=== PATIENT | male | born 1975 | race Two or more races ===

== ENCOUNTER 2017-03-27 19:45 | Emergency (ER) | payer MEDICAID ==
[~2017-03-27] VITALS: Ht 182.9 cm; Wt 113.4 kg
[~2017-03-27 19:45] MED LIST: BACTRIM DS TAB1 EAC1 ORAL; CYCLOBENZAPRINE10 MG ORAL; IBUPROFEN200 M2 ORAL; IBUPROFEN800 MG ORAL; LEVAQUIN500 MG ORAL; LORTAB 5-325 M1 EACH PO; NORCO 5-325 TA1 EACH ORAL
[2017-03-27] MEDS ORDERED: NKM (19:53)
[2017-03-27] MEDS ORDERED: Morphine Sulfate 4mg/ml Inj IVP ONE ×2 (20:15→22:30)
[2017-03-27 20:28] LABS: BASOPHILS % (AUTO) 1.5 % (0.0-2.0); EOSINOPHILS % (AUTO) 2.7 % (0.0-3.0); HEMATOCRIT 52.2 % (42.0-52.0); HEMOGLOBIN 17.2 G/DL (14.2-18.0); LYMPHOCYTES % (AUTO) 32.5 % (20.0-45.0); MEAN CORPUSCULAR VOLUME 90 FL (80-99); MONOCYTES % (AUTO) 8.1 % (1.0-10.0); NEUTROPHILS % (AUTO) 55.2 % (45.0-75.0); PLATELET COUNT 330 K/UL (150-450); RED BLOOD COUNT 5.78 M/UL (4.70-6.10); RED CELL DISTRIBUTION WIDTH 11.4 % (11.6-14.8); WHITE BLOOD COUNT 10.5 K/UL (4.8-10.8)
[2017-03-27 20:34] LABS: APPEARANCE,URINE CLEAR; BILIRUBIN, URINE NEGATIVE (NEGATIVE); COLOR,URINE PALE YELLOW; GLUCOSE, URINE (UA) NEGATIVE (NEGATIVE); KETONES,URINE NEGATIVE (NEGATIVE); LEUKOCYTE ESTERASE ,URINE NEGATIVE (NEGATIVE); NITRITE,URINE NEGATIVE (NEGATIVE); PH,URINE 5 (4.5-8.0); PROTEIN,URINE 1+ (NEGATIVE); UROBILINOGEN,URINE NORMAL MG/DL (0.0-1.0)
[2017-03-27 20:37] VITALS: BP 129/95
[2017-03-27 20:39] LABS: INR 0.9 (0.9-1.1)
[2017-03-27 20:52] LABS: ALANINE AMINOTRANSFERASE 44 U/L (12-78); ALBUMIN 4.2 G/DL (3.4-5.0); ALBUMIN/GLOBULIN RATIO 1.1 (1.0-2.7); ALKALINE PHOSPHATASE 155 U/L (46-116); ANION GAP 11 mmol/L (5-15); ASPARTATE AMINO TRANSFERASE 22 U/L (15-37); BILIRUBIN,TOTAL 0.4 MG/DL (0.2-1.0); BLOOD UREA NITROGEN 17 mg/dL (7-18); CALCIUM 9.4 MG/DL (8.5-10.1); CARBON DIOXIDE 25 MMOL/L (21-32); CHLORIDE 102 MMOL/L (98-107); CREATINE KINASE 133 U/L (26-308); CREATININE 1.2 MG/DL (0.55-1.30); SODIUM 138 MMOL/L (136-145)
[2017-03-27] MEDS ORDERED: Ketorolac 30mg Inj IV ONE (22:30)
--- NOTE | 2017-03-27 23:05 | Emergency Room Report ---
History of Present Illness General Chief Complaint: Pain Source: Patient Present Illness HPI The patient presents with left flank pain. It began when he was coughing forcefully. He has been coughing for several days but this is getting better. He had fevers on Wednesday apparently had no productive phlegm. He's concerned because the pain is over an area where he had a nephrectomy. This occurred after he had pain and they found that his kidney had multiple cysts. 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 He states the pain is 10/10 somewhat better after taking ibuprofen. Also took some NyQuil a few nights ago and is improved and the cough is much better. He's more concerned about tearing of where the nephrectomy was. He's also complaining about a rash on his face. No NVD, sore throat, headache, neck pain, chest pain, joint pain. Allergies: Coded Allergies: PENICILLIN G (Verified Allergy, Unknown, 03/27/17) Patient History Past Medical History: see triage record Past Surgical History: other - nephrectomy L Social History: Reports: smoking Social History Narrative works in [employer] Reviewed Nursing Documentation: PMH: Agreed, PSxH: Agreed Nursing Documentation-PMH Past Medical History: No History, Except For Review of Systems All Other Systems: negative except mentioned in HPI Physical Exam Vital Signs Date Time Temp Pulse Resp B/P (MAP) Pulse Ox O2 Delivery O2 Flow Rate FiO2 03/27/17 19:49 98.2 83 16 144/98 95 Room Air Sp02 EP Interpretation: reviewed, normal General Appearance: well appearing, no apparent distress, GCS 15 Head: normocephalic Eyes: bilateral eye normal inspection, bilateral eye PERRL ENT: moist mucus membranes Neck: supple Respiratory: lungs clear, normal breath sounds Cardiovascular #1: regular rate, rhythm Cardiovascular #2: 2+ radial (R) Gastrointestinal: normal inspection, normal bowel sounds, non tender, no mass, non-distended Genitourinary: CVA tenderness (L) Musculoskeletal: gait/station normal, normal range of motion, no calf tenderness Neurologic: alert, oriented x3, grossly normal Psychiatric: mood/affect normal Skin: normal inspection, warm/dry Medical Decision Making Diagnostic Impression: Primary Impression: Flank pain Additional Impressions: Muscle strain Viral syndrome ER Course Patient presents with left-sided flank pain post nephrectomy after a significant cough. Differential includes pneumonia, bronchitis, muscle strain, costochondritis amongst others. Exam is more consistent with muscle strain. Evaluation will be with chest x-ray, abdominal films, urinalysis and labs. Be treated with a dose of morphine. If renal function is normal we will consider giving Toradol. Labs are unremarkable. Chest x-ray no infiltrates, abdominal film surgical clips on the left-hand side. The patient is given a dose of morphine and also Toradol. The patient is improved after this. Findings were discussed the patient. There is no medical emergency at this time the patient is stable for observation and treatment as an outpatient Laboratory Tests Test 03/27/17 19:55 White Blood Count 10.5 K/UL (4.8-10.8) Red Blood Count 5.78 M/UL (4.70-6.10) Hemoglobin 17.2 G/DL (14.2-18.0) Hematocrit 52.2 % (42.0-52.0) H Mean Corpuscular Volume 90 FL (80-99) Mean Corpuscular Hemoglobin 29.7 PG (27.0-31.0) Mean Corpuscular Hemoglobin Concent 32.9 G/DL (32.0-36.0) Red Cell Distribution Width 11.4 % (11.6-14.8) L Platelet Count 330 K/UL (150-450) Mean Platelet Volume 6.1 FL (6.5-10.1) L Neutrophils (%) (Auto) 55.2 % (45.0-75.0) Lymphocytes (%) (Auto) 32.5 % (20.0-45.0) Monocytes (%) (Auto) 8.1 % (1.0-10.0) Eosinophils (%) (Auto) 2.7 % (0.0-3.0) Basophils (%) (Auto) 1.5 % (0.0-2.0) Prothrombin Time 9.0 SEC (9.30-11.50) L Prothrombin Time INR 0.9 (0.9-1.1) PTT 30 SEC (23-33) Urine Color Pale yellow Urine Appearance Clear Urine pH 5 (4.5-8.0) Urine Specific [place] 1.020 (1.005-1.035) Urine Protein 1+ (NEGATIVE) H Urine Glucose (UA) Negative (NEGATIVE) Urine Ketones Negative (NEGATIVE) Urine Occult Blood 3+ (NEGATIVE) H Urine Nitrite Negative (NEGATIVE) Urine Bilirubin Negative (NEGATIVE) Urine Urobilinogen Normal MG/DL (0.0-1.0) Urine Leukocyte Esterase Negative (NEGATIVE) Urine RBC 2-4 /HPF (0 - 0) H Urine WBC 0-2 /HPF (0 - 0) Urine Squamous Epithelial Cells None /LPF (NONE/OCC) Urine Amorphous Sediment Few /LPF (NONE) H Urine Bacteria Few /HPF (NONE) Sodium Level 138 MMOL/L (136-145) Potassium Level 4.0 MMOL/L (3.5-5.1) Chloride Level 102 MMOL/L (98-107) Carbon Dioxide Level 25 MMOL/L (21-32) Anion Gap 11 mmol/L (5-15) Blood Urea Nitrogen 17 mg/dL (7-18) Creatinine 1.2 MG/DL (0.55-1.30) Estimate Glomerular Filtration Rate > 60 mL/min (>60) Glucose Level 90 MG/DL (74-106) Calcium Level 9.4 MG/DL (8.5-10.1) Total Bilirubin 0.4 MG/DL (0.2-1.0) Aspartate Amino Transferase (AST) 22 U/L (15-37) Alanine Aminotransferase (ALT) 44 U/L (12-78) Alkaline Phosphatase 155 U/L (46-116) H Total Creatine Kinase 133 U/L (26-308) Troponin I 0.000 ng/mL (0.000-0.056) Total Protein 8.0 G/DL (6.4-8.2) Albumin 4.2 G/DL (3.4-5.0) Globulin 3.8 g/dL Albumin/Globulin Ratio 1.1 (1.0-2.7) Lipase 128 U/L (73-393) EKG Diagnostic Results Rate: normal Rhythm: NSR ST Segments: no acute changes - sinus arrhythmia Rhythm Strip Diag. Results EP Interpretation: yes Rhythm: NSR, no PVC's, no ectopy Chest X-Ray Diagnostic Results Chest X-Ray Diagnostic Results : Chest X-Ray Ordered: Yes # of Views/Limited/Complete: 1 View Indication: Other Interpretation: no consolidation, no effusion, no pneumothorax, no acute cardiopulmonary disease Impression: No acute disease Electronically Signed by: Gerry Santillan MD Other X-Ray Diagnostic Results Other X-Ray Diagnostic Results : X-Ray ordered: abd # of Views/Limited Vs Complete: 2 View Indication: Pain EP Interpretation: Yes Interpretation: nonspecific bowel gas, no sbo, other - surgical clips L flank Impression: No acute disease Electronically Signed by: Gerry Santillan MD Last Vital Signs Date Time Temp Pulse Resp B/P (MAP) Pulse Ox O2 Delivery O2 Flow Rate FiO2 03/27/17 23:17 98.2 78 19 133/94 97 Room Air Status: improved Disposition: HOME, SELF-CARE Condition: Improved Scripts Ibuprofen* (MOTRIN*) 600 Mg Tablet 600 MG ORAL Q6H Y for For Pain, #20 TAB Prov: Gerry Santillan M.D. 03/27/17 Tramadol Hcl* (ULTRAM*) 50 Mg Tablet 50 MG ORAL Q6H Y for For Pain, #10 TAB 0 Refills Prov: Gerry Santillan M.D. 03/27/17 Referrals: NOT CHOSEN CARMELA/,REFERRING (PCP) Gerry Santillan M.D. Mar 27, 2017 23:05
[2017-03-27] MEDS ORDERED: IBUPROFEN600 MG ORAL (23:08)
[2017-03-27] MEDS ORDERED: TRAMADOL HCL50 MG ORAL (23:08)
[2017-03-27 23:15] VITALS: BP 133/94
[2017-03-27 23:17] VITALS: BP 133/94
--- NOTE | 2017-03-28 11:09 | Diagnostic Imaging Report ---
Indication: Slight pain Technique: ABDOMEN 1 VIEW Comparison: None. Findings: There are clips in the left lower abdomen. Bowel gas pattern is nonobstructive. No gross free air. No gross free fluid. The bones are unremarkable. Impression: Evidence of previous surgery. Otherwise negative.
--- NOTE | 2017-03-28 11:09 | Diagnostic Imaging Report ---
Indication: Cough Technique: CHEST 1 VIEW Comparison:None Findings: There is slight elevation of the apparent hemidiaphragm. Some atelectasis is noted in the right base. Left lung is clear. The heart is normal in size. The bones are unremarkable. Impression: Minimal atelectasis right base. Elevated apparent right hemidiaphragm. Otherwise negative.
--- NOTE | 2017-03-29 20:20 | Cardiology Report ---
APPROVED REPORT EKG Measurement Heart [id number] Normal sinus rhythm with sinus arrhythmia Normal ECG
--- NOTE | 2017-03-29 20:20 | Cardiology Report ---
APPROVED REPORT EKG Measurement Heart [id number] [place] [id number] Normal sinus rhythm with sinus arrhythmia Normal ECG
--- NOTE | 2017-03-29 20:20 | Cardiology Report ---
APPROVED REPORT EKG Measurement Heart [id number] [place] [id number] Normal sinus rhythm with sinus arrhythmia Normal ECG
== END 2017-03-27 23:20 | disposition home or self-care (01) ==
LOC: EMR 22:00
DX: R10.9 Unspecified abdominal pain (principal); S39.011A Strain of muscle, fascia and tendon of abdomen, initial encounter; X58.XXXA Exposure to other specified factors, initial encounter; Y92.89 Other specified places as the place of occurrence of the external cause; B34.9 Viral infection, unspecified; Z88.0 Allergy status to penicillin; Z90.5 Acquired absence of kidney
CPT/HCPCS: 36415; 71010; 74000; 80053; 81003; 82550; 83690; 84484; 85025; 85610; 85730; 93005; 96374; 96375; 99284; J1885; J2270; J2405

== ENCOUNTER 2017-08-27 23:12 | Emergency (ER) | payer MEDICAID ==
[~2017-08-27] VITALS: Ht 182.9 cm; Wt 113.4 kg
[~2017-08-27 23:12] MED LIST changes: +IBUPROFEN600 MG ORAL; +NKM; +TRAMADOL HCL50 MG ORAL
[2017-08-27 23:22] VITALS: BP 138/84
[2017-08-27] MEDS ORDERED: BACTRIM DS TAB1 EAC1 ORAL (23:41)
[2017-08-27] MEDS ORDERED: PSEUDOEPHEDRINE60 MG PO (23:41)
[2017-08-27] MEDS ORDERED: FLONASE ALLERG9.9 ML NS (23:41)
--- NOTE | 2017-08-27 23:42 | Emergency Room Report ---
History of Present Illness General Chief Complaint: General Complaint Source: Patient Present Illness [facility] This is a 42-year-old male with no past medical history. He presents with chief complaint of right sinus pressure and pain for the last month. Worse in the last week. Also can't breathe out of that right nose. No fever chills. No nausea no vomiting. Denies any other complaint. Using Vicks VapoRub that was helping but not anymore. No use of Afrin. Allergies: Coded Allergies: PENICILLIN G (Verified Allergy, Unknown, 03/27/17) Patient History Past Medical History: see triage record, old chart reviewed Past Surgical History: none Pertinent Family History: none Social History: Denies: smoking Immunizations: other Reviewed Nursing Documentation: PMH: Agreed; PSxH: Agreed Nursing Documentation-PMH Past Medical History: No Stated History Review of Systems Eye: Denies: eye pain, blurred vision ENT: Reports: nose congestion; Denies: ear pain, throat swelling Respiratory: Denies: cough, shortness of breath Cardiovascular: Denies: chest pain, palpitations Gastrointestinal: Denies: abdominal pain, diarrhea, nausea, vomiting Musculoskeletal: Denies: back pain, joint pain Skin: Denies: rash Neurological: Denies: headache, numbness Endocrine: Denies: increased thirst, increased urine Hematologic/Lymphatic: Denies: easy bruising All Other Systems: negative except mentioned in HPI Physical Exam Vital Signs Date Time Temp Pulse Resp B/P (MAP) Pulse Ox O2 Delivery O2 Flow Rate FiO2 08/27/17 23:15 98.2 84 20 138/84 93 Room Air 98.2 vitals normal Sp02 EP Interpretation: reviewed, normal General Appearance: well appearing, no apparent distress, alert Head: normocephalic, atraumatic Eyes: bilateral eye PERRL, bilateral eye EOMI ENT: hearing grossly normal, normal pharynx, other - Right maxillary sinus tenderness. Right turbinate swollen Neck: full range of motion, supple, no meningismus Respiratory: chest non-tender, lungs clear, normal breath sounds Cardiovascular #1: regular rate, rhythm, no murmur Gastrointestinal: normal bowel sounds, non tender, no mass, no organomegaly, no bruit, non-distended Musculoskeletal: back normal, gait/station normal, normal range of motion Psychiatric: mood/affect normal Skin: warm/dry Medical Decision Making Diagnostic Impression: Primary Impression: Maxillary sinusitis, acute Qualified Codes: J01.00 - Acute maxillary sinusitis, unspecified ER Course Patient presents with maxillary sinusitis that's been ongoing for a month. We' ll go ahead and put him on antibiotics because of the duration. No evidence of any tumor or abscess. We'll discharge home. No evidence of meningitis. Last Vital Signs Date Time Temp Pulse Resp B/P (MAP) Pulse Ox O2 Delivery O2 Flow Rate FiO2 08/27/17 23:22 98.2 20 138/84 93 Room Air 98.2 08/27/17 23:15 84 Status: unchanged Disposition: HOME, SELF-CARE Condition: Stable Scripts Trimethoprim/Sulfamethoxazole 160/800* (BACTRIM DS TABLET*) 1 Each Tablet 1 TAB ORAL Q12H, #20 TAB 0 Refills Prov: ANTOINE ABREU M.D. 08/27/17 Pseudoephedrine Hcl* (SUDAFED*) 60 Mg Tablet 60 MG PO Q6H, #30 TAB Prov: ANTOINE ABREU M.D. 08/27/17 Fluticasone Propionate (Flonase Allergy Relief) 9.9 Ml [place].susp 9.9 ML NS BID, #1 UNIT Prov: ANTOINE ABREU M.D. 08/27/17 Additional Instructions: Follow-up with your DrOlivia in 7 days. Return if symptom worsen. ANTOINE ABREU M.D. Aug 27, 2017 23:42
[2017-08-27 23:48] VITALS: BP 138/84
== END 2017-08-27 23:47 | disposition home or self-care (01) ==
LOC: EMR 23:37
DX: J01.00 Acute maxillary sinusitis, unspecified (principal); Z88.0 Allergy status to penicillin
CPT/HCPCS: 99284

== ENCOUNTER 2018-03-25 23:35 | Emergency (ER) | payer MEDICAID ==
[~2018-03-25] VITALS: Ht 182.9 cm; Wt 115.7 kg
[~2018-03-25 23:35] MED LIST changes: +FLONASE ALLERG9.9 ML NS; +PSEUDOEPHEDRINE60 MG PO
[2018-03-26 00:04] VITALS: BP 144/89
--- NOTE | 2018-03-26 00:09 | Emergency Room Report ---
History of Present Illness General Chief Complaint: Eye Problems Source: Patient Present Illness HPI Patient's co-workers noted redness in L eye. He had an episode of coughing. This sometimes occurs along with L flank pain. He denies trauma to the eye or pain. No change in vision. No fevers. Flank pain is worse with work. Repetitive movements - lifts up to 65 pounds. In past had to lift 100 lbs. Had partial nephrectomy for cysts. No hematuria or dysuria. No CP, NVD, back, neck or joint pain. 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 Reviewed Nursing Documentation: PMH: Agreed; PSxH: Agreed Nursing Documentation-PMH Hx Neurological Problems: Yes - nephrectomy (left) Review of Systems All Other Systems: negative except mentioned in HPI Physical Exam Vital Signs Date Time Temp Pulse Resp B/P (MAP) Pulse Ox O2 Delivery O2 Flow Rate FiO2 03/25/18 23:51 98.1 99 16 144/89 94 Room Air Sp02 EP Interpretation: reviewed, normal General Appearance: well appearing, no apparent distress Head: normocephalic, atraumatic Eyes: right eye Scleral Injection - pterygium and SC hemorrhage, no floroscene uptake; bilateral eye PERRL, bilateral eye EOMI ENT: hearing grossly normal, normal voice Neck: full range of motion, supple Respiratory: no respiratory distress, speaking full sentences Gastrointestinal: normal bowel sounds, non tender, soft Genitourinary: no CVA tenderness Musculoskeletal: no calf tenderness Neurologic: alert, normal gait, grossly normal Psychiatric: mood/affect normal Skin: no rash Medical Decision Making Diagnostic Impression: Primary Impression: Subconjunctival hemorrhage Qualified Codes: H11.31 - Conjunctival hemorrhage, right eye Additional Impressions: Flank pain Cough ER Course Patient presents with SC hemorrhage R eye. No evidence of corneal damage by Wood's lamp. Etiology most likely from cough. This is concerning as prior nephrectomy and flank pain. CXR and Abd films indicated. Also will check UA. Patient treated with motrin. Clinically, no evidence for PE or cardiac involvement. CXR and ABD films with clips L. UA clear. Patient improved. Discussed need to follow up with PMD (not have). Advised to go to local clinics for PMD and urology referral. Consider ultrasound for L flank pain or CT. Patient stable for outpatient observation and treatment. Laboratory Tests Test 03/26/18 01:08 Urine Color Pale yellow Urine Appearance Clear Urine pH 6 (4.5-8.0) Urine Specific [place] 1.020 (1.005-1.035) Urine Protein 1+ (NEGATIVE) H Urine Glucose (UA) Negative (NEGATIVE) Urine Ketones Negative (NEGATIVE) Urine Blood 2+ (NEGATIVE) H Urine Nitrite Negative (NEGATIVE) Urine Bilirubin Negative (NEGATIVE) Urine Urobilinogen Normal MG/DL (0.0-1.0) Urine Leukocyte Esterase Negative (NEGATIVE) Urine RBC 2-4 /HPF (0 - 0) H Urine WBC 0-2 /HPF (0 - 0) Urine Squamous Epithelial Cells Occasional /LPF Urine Bacteria Few /HPF (NONE) Last Vital Signs Date Time Temp Pulse Resp B/P (MAP) Pulse Ox O2 Delivery O2 Flow Rate FiO2 03/26/18 03:21 98.0 99 16 130/80 99 Room Air Status: improved Disposition: HOME, SELF-CARE Condition: Stable Scripts Ibuprofen* (MOTRIN*) 600 Mg Tablet 600 MG ORAL Q6H PRN for For Pain, #20 TAB Prov: Gerry Santillan MD 03/26/18 Gerry Santillan MD Mar 26, 2018 00:09
[2018-03-26] MEDS ORDERED: Fluorescein Strips RIGHT EYE ONE (00:15)
[2018-03-26] MEDS ORDERED: Tetracaine 0.5% Opth 4ml Soln RIGHT EYE ONE (00:15)
[2018-03-26 01:21] LABS: APPEARANCE,URINE CLEAR; BILIRUBIN, URINE NEGATIVE (NEGATIVE); COLOR,URINE PALE YELLOW; GLUCOSE, URINE (UA) NEGATIVE (NEGATIVE); KETONES,URINE NEGATIVE (NEGATIVE); LEUKOCYTE ESTERASE ,URINE NEGATIVE (NEGATIVE); NITRITE,URINE NEGATIVE (NEGATIVE); PH,URINE 6 (4.5-8.0); PROTEIN,URINE 1+ (NEGATIVE); UROBILINOGEN,URINE NORMAL MG/DL (0.0-1.0)
--- NOTE | 2018-03-26 02:48 | Diagnostic Imaging Report ---
EXAM: XR Abdomen, 1 View CLINICAL HISTORY: Abdominal pain TECHNIQUE: Frontal supine view of the abdomen/pelvis. COMPARISON: There are no prior studies available for comparison. FINDINGS: Gastrointestinal tract: No definite plain film evidence for significant bowel loop dilation to suggest an obstructive process. Some stool is projected in the ascending colon. Bones/joints: Unremarkable. Soft tissues: Surgical clips are projected over the left lower quadrant. Vasculature: A calcification is projected in the pelvis on the left which is likely vascular in origin. IMPRESSION: No definite plain film evidence for significant bowel loop dilation to suggest an obstructive process.
--- NOTE | 2018-03-26 02:50 | Diagnostic Imaging Report ---
EXAM: XR Chest, 1 View CLINICAL HISTORY: COUGH TECHNIQUE: Frontal view of the chest. COMPARISON: There are no prior studies available for comparison. FINDINGS: Lungs: Mild atelectasis versus infiltrate at the lung bases. Low lung volumes. Pleural space: Unremarkable. No pneumothorax. Heart: Prominence of the cardiac silhouette. Mediastinum: Unremarkable. Bones/joints: Unremarkable. IMPRESSION: 1. Prominence of the cardiac silhouette. 2. Mild atelectasis versus infiltrate at the lung bases.
[2018-03-26] MEDS ORDERED: IBUPROFEN600 MG ORAL (02:59)
[2018-03-26 03:21] VITALS: BP 130/80
== END 2018-03-26 03:20 | disposition home or self-care (01) ==
LOC: EMR 03-26 00:30
DX: H11.31 Conjunctival hemorrhage, right eye (principal); R10.9 Unspecified abdominal pain; R05 Cough; Z90.5 Acquired absence of kidney
CPT/HCPCS: 71045; 74018; 81003; 99284

== ENCOUNTER 2019-02-25 00:16 | Emergency (ER) | payer SELFPAY ==
[~2019-02-25] VITALS: Ht 182.9 cm; Wt 117.9 kg
[~2019-02-25 00:16] MED LIST changes: +GUAIFENESIN DM118 M1 ORAL; +ZITHROMAX250 MG ORAL
--- NOTE | 2019-02-25 00:25 | NUR ---
ED Nurse Note: pt walked in to ED C/O pain to right great toe after a furniture dropped on his great toe about 3 weeks ago. Pt is alert x4. VSS
--- NOTE | 2019-02-25 00:40 | Emergency Room Report ---
History of Present Illness General Chief Complaint: Lower Extremity Injury Source: Patient Present Illness HPI Disclaimer: Please note that this report is being documented using [employer] technology. This can lead to erroneous entry secondary to incorrect interpretation by the dictating instrument. HPI: Is an otherwise healthy 43-year-old male presenting for evaluation of a toe injury. The patient states that he had a swelling over the lateral aspect of his right great toe over the past 3 weeks. He and his daughter were moving a table and he dropped it onto his foot approximate 3 weeks ago. He has been ambulating on it since. He notes worsening pain. He noted some inflammation around the lateral aspect of the right great toenail and was scrubbing it vigorously causing the skin to break down some minor bleeding. He applied pressure which caused hemostasis. Denies any fevers, chills, swelling in the joints. Denies any injury to the midfoot or ankle. PMH: Denies PSH: Denies Allergies: Penicillin Social Hx: Denies drug or alcohol abuse Allergies: Coded Allergies: PENICILLIN G (Verified Allergy, Unknown, 03/27/17) Nursing Documentation-PMH Past Medical History: No Stated History Hx Neurological Problems: Yes - nephrectomy (left) Review of Systems All Other Systems: negative except mentioned in HPI Physical Exam Vital Signs Date Time Temp Pulse Resp B/P (MAP) Pulse Ox O2 Delivery O2 Flow Rate FiO2 02/25/19 00:18 98.2 92 16 139/87 (104) 97 Room Air General: Awake and alert, no acute distress HEENT: NC/AT. EOMI. Resp: Normal work of breathing Skin: There is a minor abrasion with the superficial skin missing over the lateral aspect of the right great toenail. No drainage, mild surrounding erythema. MSK: Normal tone and bulk. Moving all extremities. Tenderness palpation over the distal phalanx of the right great toe. No obvious deformity. There is surrounding erythema but no significant edema. No midfoot tenderness, no tenderness at the ankle. Neuro: Awake and alert. Mentating appropriately Procedures Incision and Drainage Incision and Drainage : Consent: Verbal Blade Size: 11 I & D Procedure: betadine prep, sterile drapes applied Wound Location: lower extremity - Right great toe Wound's Depth, Shape: superficial Wound Explored: clean Sling Applied?: Yes Patient Tolerated: Well Medical Decision Making ER Course 43-year-old male presenting for evaluation of 3 weeks toe pain after he dropped a table onto his foot. Possible fracture though also possible paronychia infection. Will obtain an x-ray to rule out fracture and otherwise drain the paronychia at bedside. He is otherwise well-appearing with no tenderness or deformity in the midfoot or ankle. Other X-Ray Diagnostic Results Other X-Ray Diagnostic Results : X-Ray ordered: Right toes Indication: Pain EP Interpretation: Yes Interpretation: no dislocation, no soft tissue swelling, no fractures Impression: No acute disease Electronically Signed by: Electronically signed by Dr. Minh Eubanks Reevaluation Time: 01:10 Last Vital Signs Date Time Temp Pulse Resp B/P (MAP) Pulse Ox O2 Delivery O2 Flow Rate FiO2 02/25/19 00:18 98.2 92 16 139/87 (104) 97 Room Air Reevaluation Impression No evidence of fracture on x-ray. Incision was performed at bedside for paronychia. Mild serosanguineous fluid released. Patient had his foot soaked and irrigated. Will discharge with continued warm stool twice daily and prescribe mupirocin cream as well. We will follow-up with PMD. Discussed reasons to return to the emergency department. He understands and agrees with this treatment plan. Disposition: HOME, SELF-CARE Condition: Stable Scripts Mupirocin* (MUPIROCIN*) 22 Gm Oint...g. 1 APPLIC TOPIC THREE TIMES A DAY for 5 Days, #22 GM Prov: Minh Eubanks MD 02/25/19 Minh Eubanks MD Feb 25, 2019 00:40
--- NOTE | 2019-02-25 00:47 | NUR ---
ED Nurse Note: x ray at bed side
[2019-02-25] MEDS ORDERED: MUPIROCIN22 GM TOPIC (01:00)
[2019-02-25 01:11] VITALS: BP 140/87
--- NOTE | 2019-02-25 01:11 | NUR ---
ER DISCHARGE NOTE: Patient is cleared to be discharged per ERMD, pt is aox4, on room air, with stable vital signs. pt was given dc and prescription instructions, pt was able to verbalize understanding, pt id band removed without complications. pt is able to ambulate with steady gait. pt took all belongings.
--- NOTE | 2019-02-25 01:53 | Diagnostic Imaging Report ---
EXAM: XR Right Toe(s), 2 or More Views CLINICAL HISTORY: INJ TECHNIQUE: Frontal, lateral and oblique views of toe(s) of the right foot. COMPARISON: No relevant prior studies available. FINDINGS: Bones joints: No fracture or malalignment. Soft tissues: Unremarkable. No radiopaque foreign body. IMPRESSION: No fracture or malalignment.
== END 2019-02-25 01:11 | disposition home or self-care (01) ==
LOC: EMR 00:42
DX: L03.031 Cellulitis of right toe (principal); Z88.0 Allergy status to penicillin; Z90.5 Acquired absence of kidney
CPT/HCPCS: 10060; 99283